=== PATIENT | male | born 1955 | race Caucasian/White ===

== ENCOUNTER 2016-09-28 13:26 | Inpatient (IN) | payer MEDICARE, OTHER ==
[~2016-09-28] VITALS: Ht 177.8 cm; Wt 64.9 kg
[~2016-09-28 13:26] MED LIST: ACHD5005 PO; CEFU250T11 PO; CPR500T PO; CYCL-97 PO; CYCL10TA9 PO; IBUP1TAB PO; NAPR-243 PO; NAPR220C11 PO; OXYC-465 PO; PRD20T PO; TRM50T PO; VARE1TAB17 PO; [UNRECOGNIZED DRUG - OTHER]; [UNRECOGNIZED DRUG - REMARK]
--- NOTE | 2016-09-28 14:37 | ED General ---
General Chief Complaint: Hip/Pelvic Problems Stated Complaint: HIP PAIN/CONFUSION Nursing Triage Note: AMBULATED TO ROOM 07 WITH COMPLAINTS OF RIGHT HIP PAIN ET NECK PAIN STARTING YESTERDAY. SISTER STATES HE IS NOT ACTING HIMSELF AND SEEMS CONFUSED AT TIMES STARTING THIS AM SHE NOTICED. Nursing Sepsis Screen: No Definite Risk Source of Information: Patient, Family (sister) Exam Limitations: Other (clinical condition) History of Present Illness Time Seen by Provider: 14:37 Initial Comments 61-year-old male patient presents to the emergency department with complaints of right hip pain and neck pain beginning last night. Sister reports patient contacted her at 0600 this a.m. as well as contacted other family members and was confused. Patient reportedly told the family that people were "bleeding out and dying" at his house. Sister states she did go check on him this afternoon and found patient to be confused, delusional, and hallucinating. Denies any previous h/o similar complaints. Denies any known injury or recent falls. Timing/Duration: 12-24 Hours, Changing Over Time, Getting Worse Modifying Factors: worse with Other (denies modifying factors) Allergies and Home Medications Allergies Coded Allergies: Penicillins (Unverified Allergy, Mild, RASH, 05/30/13) FROM UNCODED ALLERGIES. fish derived (Unverified Allergy, Mild, RASH, 05/30/13) FROM UNCODED ALLERGIES. TUNA, MACKERAL, SALMON. adhesive (Verified Allergy, Unknown, HIVES, 09/28/16) Tape chicken derived (Unverified Allergy, Unknown, RASH, 09/28/16) FROM UNCODED ALLERGIES. egg (Unverified Allergy, Unknown, RASH, 09/28/16) pork derived (porcine) (Unverified Allergy, Unknown, 09/28/16) FROM UNCODED ALLERGIES. RX IS DIARRHEA. Home Medications Levofloxacin 500 Mg Tablet #7 500 MG PO DAILY Prescribed by: MARLENY COOPER on 09/29/16 1115 Constitutional: No chills, No diaphoresis, No dizziness, feverNo malaise, No weakness EENTM: no symptoms reported Respiratory: No cough, No short of breath Cardiovascular: No chest pain, No edema, No palpitations, No syncope Gastrointestinal: No abdominal pain, No constipation, No diarrhea, loss of appetiteNo nausea, No vomiting Genitourinary: No decreased output, No dysuria, No frequency, No hematuria, No pain Musculoskeletal: see HPINo back pain, joint pain neck pain Skin: No change in color, No lesions, No lumps, No rash Psychiatric/Neurological: See HPIDenies Headache, Denies Numbness, Denies Paresthesia, Denies Seizure, Denies Tingling, Denies Weakness All Other Systems Reviewed Negative Unless Noted: Yes (Negative excepted noted.) Past Csxnsnn-Fovwzd-Rjsuyl Hx Patient Social History Alcohol Use: Occasionally Uses Recreational Drug Use: No Smoking Status: Current Everyday Smoker Recent Foreign Travel: No Contact w/Someone Who Travel: No Recent Infectious Disease Expo: No Recent Hopitalizations: No Seasonal Allergies Seasonal Allergies: Yes Surgeries HX Surgeries: Yes (SINUS SURGERY, BACK FUSION 5-6-7) Respiratory Hx Respiratory Disorders: Yes Respiratory Disorders: COPD Cardiovascular Hx Cardiac Disorders: No Neurological Hx Neurological Disorders: No Reproductive System Hx Reproductive Disorders: No Genitourinary Hx Genitourinary Disorders: No Gastrointestinal Hx Gastrointestinal Disorders: No Musculoskeletal Hx Musculoskeletal Disorders: Yes (CERVICAL STENOSIS) Musculoskeletal Disorders: Chronic Back Pain Endocrine Hx Endocrine Disorders: No HEENT HX ENT Disorders: No (ALLERGIES) Cancer Hx Cancer: No Psychosocial Hx Psychiatric Problems: No Integumentary HX Skin/Integumentary Disorder: No Blood Transfusions Hx Blood Disorders: No Reviewed Nursing Assessment Reviewed/Agree w Nursing PMH: Yes Family Medical History Significant Family History: No Pertinent Family Hx Physical Exam Vital Signs Vital Sign - Last 12Hours 09/28/16 14:13 Temp 99.7 Pulse 129 Resp 18 B/P 160/104 Pulse Ox 94 O2 Delivery Room Air Capillary Refill : Less Than 3 Seconds General Appearance: No Apparent Distress Chronically ill HEENT: PERRL/EOMI TMs Normal Normal ENT Inspection Pharynx Normal Neck: Full Range of Motion Normal Inspection Supple Tender LateralNo Tender Midline, No Other (no nuchal rigidity.) Respiratory: Lungs Clear Normal Breath Sounds No Accessory Muscle Use No Respiratory Distress Cardiovascular: No Edema No Murmur Normal Peripheral Pulses Tachycardia Gastrointestinal: Normal Bowel Sounds No Organomegaly Non Tender SoftNo Distended Back: Normal Inspection No CVA Tenderness Extremity: Normal Capillary Refill Normal Inspection Non Tender No Calf Tenderness No Pedal Edema Neurologic/Psychiatric: Alert No Motor/Sensory Deficits (Patient is slow to follow commands, but is able to after being redirected 2-3 times.) adhesive sprayer II-XII Norm as Tested (Patient is slow to follow commands, but is able to after being redirected 2-3 times.) Depressed Affect Other (patient has alternating episodes of confusion and being oriented. Patient asks this examiner "are they going to release your sister's body to you?" I explained to the patient that I do not have a sister. ) Skin: Normal Color Warm/Dry Progress/Results/Core Measures Results/Orders Lab Results Laboratory Tests Test 09/28/16 14:40 09/28/16 15:00 09/28/16 16:31 09/28/16 19:32 Range/Units Acetaminophen Level < 10 L 10-30 UG/ML Activated Partial Thromboplast Time 28 24-35 SEC Alanine Aminotransferase (ALT/SGPT) 9 0-55 U/L Albumin 4.5 3.2-4.5 G/DL Alkaline Phosphatase 124 40-136 U/L Anion Gap 17 H 5-14 MMOL/L Aspartate Amino Transf (AST/SGOT) 18 5-34 U/L BUN/Creatinine Ratio 15 Basophils # (Auto) 0.0 0.0-0.1 10^3/uL Basophils (%) (Auto) 0 0-10 % Blood Morphology Comment NORMAL Blood Urea Nitrogen 13 7-18 MG/DL Calcium Level 9.1 8.5-10.1 MG/DL Carbon Dioxide Level 21 21-32 MMOL/L Chloride Level 99 98-107 MMOL/L Creatinine 0.87 0.60-1.30 MG/DL Eosinophils # (Auto) 0.1 0.0-0.3 10^3/uL Eosinophils (%) (Auto) 0 0-10 % Estimat Glomerular Filtration Rate > 60 Glucose Level 100 70-105 MG/DL Hematocrit 51 40-54 % Hemoglobin 17.7 13.3-17.7 G/DL Hypersegmented Neutrophils MODERATE INR Comment 1.0 0.8-1.4 Lymphocytes # (Auto) 1.2 1.0-4.0 X 10^3 Lymphocytes % (Manual) 4 % Lymphocytes (%) (Auto) 7 L 12-44 % Mean Corpuscular Hemoglobin 30 25-34 PG Mean Corpuscular Hemoglobin Concent 35 32-36 G/DL Mean Corpuscular Volume 85 80-99 FL Mean Platelet Volume 11.4 H 7.4-10.4 FL Monocytes # (Auto) 1.2 H 0.0-1.0 X 10^3 Monocytes % (Manual) 4 % Monocytes (%) (Auto) 7 0-12 % Neutrophils # (Auto) 14.1 H 1.8-7.8 X 10^3 Neutrophils % (Manual) 90 % Neutrophils (%) (Auto) 85 H 42-75 % Platelet Count 244 130-400 10^3/uL Potassium Level 3.8 3.6-5.0 MMOL/L Prothrombin Time 12.9 12.2-14.7 SEC Reactive Lymphocytes 2 % Red Blood Count 5.98 H 4.35-5.85 10^6/uL Red Cell Distribution Width 14.9 H 10.0-14.5 % Salicylates Level < 5.0 L 5.0-20.0 MG/DL Serum Alcohol < 10 <10 MG/DL Sodium Level 137 135-145 MMOL/L TSH [place] Testing 2.26 0.35-4.94 UIU/ML Total Bilirubin 0.8 0.1-1.0 MG/DL Total Protein 7.1 6.4-8.2 G/DL White Blood Count 16.6 H 4.3-11.0 10^3/uL Lactic Acid Level 1.5 0.5-2.0 MMOL/L Ur Tricyclic Antidepressants Screen NEGATIVE NEGATIVE Urine Amphetamines Screen NEGATIVE NEGATIVE Urine Bacteria NEGATIVE /HPF Urine Barbiturates Screen NEGATIVE NEGATIVE Urine Benzodiazepines Screen NEGATIVE NEGATIVE Urine Bilirubin NEGATIVE NEGATIVE Urine Cannabinoids Screen NEGATIVE NEGATIVE Urine Casts NONE /LPF Urine Clarity CLEAR Urine Cocaine Screen NEGATIVE NEGATIVE Urine Color YELLOW Urine Crystals NONE /LPF Urine Culture Indicated NO Urine Glucose (UA) NEGATIVE NEGATIVE Urine Ketones 3+ H NEGATIVE Urine Leukocyte Esterase 1+ H NEGATIVE Urine Methadone Screen NEGATIVE NEGATIVE Urine Methamphetamines Screen NEGATIVE NEGATIVE Urine Mucus NEGATIVE /LPF Urine Nitrite NEGATIVE NEGATIVE Urine Opiates Screen NEGATIVE NEGATIVE Urine Oxycodone Screen NEGATIVE NEGATIVE Urine Phencyclidine Screen NEGATIVE NEGATIVE Urine Propoxyphene Screen NEGATIVE NEGATIVE Urine Protein NEGATIVE NEGATIVE Urine RBC NONE /HPF Urine RBC (Auto) NEGATIVE NEGATIVE Urine Specific [place] 1.010 L 1.016-1.022 Urine Squamous Epithelial Cells RARE /HPF Urine Urobilinogen NORMAL NORMAL MG/DL Urine WBC 0-2 /HPF Urine pH 6 5-9 CSF Appearance CLEAR CSF Color COLORLESS CSF Glucose 63 50-80 MG/DL CSF Lymphocytes % CSF Mononuclear WBCs % CSF Polynuclear WBCs % CSF RBC 0 0-0 CELLS CSF Total Protein 24 15-40 MG/DL CSF Tube Number 4 CSF WBC 0 0-5 CELLS Test 09/29/16 04:55 Range/Units Alanine Aminotransferase (ALT/SGPT) 7 0-55 U/L Albumin 3.2 3.2-4.5 G/DL Alkaline Phosphatase 85 40-136 U/L Anion Gap 9 5-14 MMOL/L Aspartate Amino Transf (AST/SGOT) 14 5-34 U/L BUN/Creatinine Ratio 12 Basophils # (Auto) 0.0 0.0-0.1 10^3/uL Basophils (%) (Auto) 0 0-10 % Blood Urea Nitrogen 9 7-18 MG/DL Calcium Level 7.8 L 8.5-10.1 MG/DL Carbon Dioxide Level 23 21-32 MMOL/L Chloride Level 106 98-107 MMOL/L Creatinine 0.75 0.60-1.30 MG/DL Eosinophils # (Auto) 0.2 0.0-0.3 10^3/uL Eosinophils (%) (Auto) 2 0-10 % Estimat Glomerular Filtration Rate > 60 Glucose Level 96 70-105 MG/DL Hematocrit 44 40-54 % Hemoglobin 14.7 13.3-17.7 G/DL Lymphocytes # (Auto) 1.4 1.0-4.0 X 10^3 Lymphocytes (%) (Auto) 15 12-44 % Mean Corpuscular Hemoglobin 29 25-34 PG Mean Corpuscular Hemoglobin Concent 34 32-36 G/DL Mean Corpuscular Volume 87 80-99 FL Mean Platelet Volume 11.6 H 7.4-10.4 FL Monocytes # (Auto) 0.9 0.0-1.0 X 10^3 Monocytes (%) (Auto) 11 0-12 % Neutrophils # (Auto) 6.4 1.8-7.8 X 10^3 Neutrophils (%) (Auto) 72 42-75 % Platelet Count 184 130-400 10^3/uL Potassium Level 3.7 3.6-5.0 MMOL/L Red Blood Count 5.01 4.35-5.85 10^6/uL Red Cell Distribution Width 14.8 H 10.0-14.5 % Sodium Level 138 135-145 MMOL/L Total Bilirubin 0.5 0.1-1.0 MG/DL Total Protein 5.2 L 6.4-8.2 G/DL White Blood Count 8.9 4.3-11.0 10^3/uL Micro Results Microbiology 09/28/16 Blood Culture - Preliminary, Resulted No growth 09/28/16 Blood Culture - Preliminary, Resulted No growth 09/28/16 Gram Stain - Final, Resulted 09/28/16 CSF Culture - Preliminary, Resulted No growth My Orders Orders-LIZABETH HUBBARD Acetaminophen (09/28/16 14:32) Alcohol (09/28/16 14:32) Cbc With Automated Diff (09/28/16 14:32) Comprehensive Metabolic Panel (09/28/16 14:32) Drug Screen Stat (Urine) (09/28/16 14:32) Salicylate (09/28/16 14:32) Thyroid Analyzer (09/28/16 14:32) Ua Culture If Indicated (09/28/16 14:32) Saline Lock/Iv-Start (09/28/16 14:32) Ekg Tracing (09/28/16 14:32) Chest 1 View, Ap/Pa Only (09/28/16 14:32) Pelvis (09/28/16 14:36) Hip, Right, 2 Views (09/28/16 14:36) Manual Differential (09/28/16 14:40) Ns Iv 1000 Ml (Sodium Chloride 0.9%) (09/28/16 14:57) Acetaminophen Tablet (Tylenol Tablet) (09/28/16 14:57) Lactic Acid Analyzer (09/28/16 14:57) Blood Culture (09/28/16 14:57) Ct Head/Cervical Spine Wo (09/28/16 15:03) Ct Angio Head W (09/28/16 16:50) Iohexol Injection (Omnipaque 350 Mg/Ml 1 (09/28/16 17:15) Ns (Ivpb) (Sodium Chloride 0.9% Ivpb Bag (09/28/16 17:15) Ns Iv 1000 Ml (Sodium Chloride 0.9%) (09/28/16 18:30) Ceftriaxone Injection (Rocephin Injectio (09/28/16 18:30) Ketorolac Injection (Toradol Injection) (09/28/16 18:35) Spinal Punctue Lumbar Diagnos (09/28/16 18:47) Csf Culture (09/28/16 19:40) Csf Cell Count (09/28/16 19:40) Csf Glucose (09/28/16 19:40) Csf Total Protein (09/28/16 19:40) Ceftriaxone Injection (Rocephin Injectio (09/28/16 19:45) Medications Given in ED Vital Signs/I&O Blood Pressure Mean: 122 Diagnostic Imaging Diagonstic Imaging: CT Plain Films/CT/US/NM/MRI: c-spine, head Comments FINDINGS: There is mild prominence of ventricles and sulci. No hydrocephalus. No midline shift. No intracranial mass, hemorrhage or extra-axial fluid collection. There is no CT evidence of an acute CVA. There is complete opacification of the frontal sinuses. There is opacification of several ethmoid air cells as well as the sphenoid sinus. There is some nodular mucosal thickening in maxillary sinuses bilaterally, left greater than right. There is straightening of normal cervical lordosis. There are postsurgical changes of a cervical fusion from C4-C7 with plate and screws. There is a lucency between the C4 and C5 vertebral body suggesting incomplete fusion. Remainder of the fusion appears satisfactory. There is no fracture or traumatic subluxation. The odontoid is intact. The lateral masses are well aligned. Prevertebral soft tissues are within normal limits. IMPRESSION: 1. No acute intracranial abnormality. There does appear to be mild age-appropriate atrophy. 2. Moderately severe diffuse sinus disease as described. This likely reflects polyposis. Recommend clinical correlation. 3. Postsurgical change of a C4-C7 fusion. There is a persistent lucency between the C4 and C5 vertebral bodies suggesting pseudarthrosis and/or incomplete fusion. Recommend clinical correlation. 4. No acute fracture or traumatic subluxation. Dictated on workstation # [id number] Reviewed: Reviewed by Me (radiology report reviewed by me) Diagonstic Imaging: Xray Plain Films/CT/US/NM/MRI: chest Comments FINDINGS: The heart size is normal. Mediastinum is unremarkable. No pleural effusion, pneumothorax or pneumonia. IMPRESSION: No acute cardiopulmonary abnormality. Dictated by: Dictated on workstation # [id number] Reviewed: Reviewed by Me (radiology report reviewed by me) Diagonstic Imaging: Xray Plain Films/CT/US/NM/MRI: pelvis Comments FINDINGS: AP pelvis shows SI joints and pubic symphysis in good alignment. There is mild sclerosis along the SI joints. Femoral heads are in normal articulation bilaterally with mild degenerative changes along the femoroacetabular joint bilaterally. There are no fractures. Femoral heads show smooth articulating surfaces. IMPRESSION: Scattered degenerative changes with no acute abnormality. Dictated by: Dictated on workstation # [id number] Reviewed: Reviewed by Me (radiology report reviewed by me) Diagonstic Imaging: Xray Plain Films/CT/US/NM/MRI: hip Comments FINDINGS: There are degenerative changes in the right hip. No fracture or dislocation. The soft tissues are unremarkable. IMPRESSION: Degenerative changes in the right hip, otherwise, unremarkable. Dictated by: Dictated on workstation # [id number] Reviewed: Reviewed by Me (radiology report reviewed by me) Diagonstic Imaging: CT Plain Films/CT/US/NM/MRI: head (angio head) Comments FINDINGS: Included portions of the distal internal carotid arteries have normal appearance, bilaterally. There is some scattered calcified atherosclerosis, distally. Otherwise, siphons have a normal appearance. There is also normal appearance of the bilateral anterior and middle cerebral arteries. Anterior communicating artery is not well visualized on this exam, but there is no evidence of aneurysm, vascular malformation, nor intraluminal thrombosis within the anterior circulation. Within the posterior circulation, the vertebral arteries appear to be codominant. Included portions of the distal vertebral arteries are patent. There is normal appearance to the basilar artery. The bilateral posterior cerebral arteries are well opacified, bilaterally. Posterior communicating arteries are not well visualized on either side. There is no evidence of aneurysm, vascular malformation, nor intraluminal thrombosis within the posterior circulation. Postcontrast CT of the head was also performed and is reviewed. No abnormal areas of postcontrast enhancement are identified. There is no loss of murphy-white matter junction differentiation to suggest acute territorial infarct. There is no mass effect or midline shift. No extra-axial masses or fluid collections are seen. There is no evidence of intra- or extra-axial intracranial hemorrhage. Ventricles and cortical sulci are age- appropriate. Evaluation of the paranasal sinuses again demonstrates severe diffuse nodular mucosal thickening of the nasal passageways. There is soft tissue lesion filling the posterior left nasal passageway. There is also complete opacification of the left sphenoid sinus and small air-fluid level on the right. There is scattered near complete opacification of the bilateral ethmoid air cells. There is also complete opacification of the left frontal sinus with apparent erosion of the anterior wall of frontal sinus. Otherwise, calvarium is intact. Mastoid air cells are unremarkable. IMPRESSION: 1. No evidence of intraluminal thrombosis, aneurysm, nor vascular malformation. 2. No acute intracranial abnormality. No CT evidence of acute infarct, mass, or hemorrhage. 3. Advanced paranasal sinus disease as described above. Filling defect within the posterior left nasal passageway is noted and is suggestive of possible prolapsed choanal polyp. Additionally, there is erosion through the anterior wall of the left frontal sinus. Dictated on workstation # [id number] Reviewed: Reviewed by Me (radiology report reviewed by me) Departure Communication Time/Spoke to Admitting Phy: 20:[address] Aguilera accepts patient to his internal medicine service for IV antibiotics, IVF, and further evaluation. Progress Notes 1633 Crisis line contacted. will await return call. 1640 Patient case discussed with Gus Ferrell from [facility]. Per Gus Ferrell, it would be abnormal for patient to develop psychosis/schizophrenia at the age of 61[address] scan of the head with IV contrast to further evaluate/rule out stroke/ischemic changes. Patient and family notified of these recommendations. Both voice understanding. 1835 patient case discussed with Dr. Cleveland who recommends consulting anesthesia for lumbar puncture to rule out meningitis. Plan for lumbar puncture discussed with the patient and family. Both voice understanding. Patient denies any new needs or complaints. 184 Pardeep Orozco CRNA consulted for LP. 2044 all laboratory findings, diagnostic study findings, and recommendations for admission discussed with the patient and family as patient continues to have episodes of hallucinations and delusions. Both voice understanding and agree with the treatment plan. Dr. Cleveland notified of plan for admission. He agrees with the plan of care. Impression Impression: Primary Impression: Altered level of consciousness Additional Impressions: Acute psychosis Sinusitis Qualified Code: J32.9 - Chronic sinusitis, unspecified Headache Qualified Code: R51 - Headache Leukocytosis Qualified Code: D72.829 - Elevated white blood cell count, unspecified Disposition: ADMITTED INPATIENT Condition: Stable Decision to Admit Reason: Admit from ER (General) Decision to Admit/Date: Sep 28, 2016 Time/Decision to Admit Time: 20:40 Departure-Patient Inst. Referrals: SURJIT FUNG MD (PCP/Family) Primary Care Physician Scripts Levofloxacin (Levaquin)500 Mg [id number] Mg PO DAILY #7 TAB Prov:MARLENY COOPER MD 09/29/16 LIZABETH HUBBARD Sep 28, 2016 14:37
[2016-09-28 14:46] LABS: BASOPHILS % (AUTO) 0 % (0-10); EOSINOPHILS # (AUTO) 0.1 10^3/uL (0.0-0.3); EOSINOPHILS % (AUTO) 0 % (0-10); LYMPHOCYTES # (AUTO) 1.2 X 10^3 (1.0-4.0); LYMPHOCYTES % (AUTO) 7 % (12-44); MEAN CORPUSCULAR HEMOGLOBIN 30 PG (25-34); MEAN CORPUSCULAR HGB CONC 35 G/DL (32-36); MEAN CORPUSCULAR VOLUME 85 FL (80-99); MEAN PLATELET VOLUME 11.4 FL (7.4-10.4); MONOCYTES # (AUTO) 1.2 X 10^3 (0.0-1.0); MONOCYTES % (AUTO) 7 % (0-12); NEUTROPHILS # (AUTO) 14.1 X 10^3 (1.8-7.8); NEUTROPHILS % (AUTO) 85 % (42-75); PLATELET COUNT 244 10^3/uL (130-400); RED BLOOD COUNT 5.98 10^6/uL (4.35-5.85); RED CELL DISTRIBUTION WIDTH 14.9 % (10.0-14.5); WHITE BLOOD COUNT 16.6 10^3/uL (4.3-11.0)
[2016-09-28] MEDS ORDERED: NS IV 1000 ML 1,000 ML IV ONE ×2 (14:57→18:30)
[2016-09-28] MEDS ORDERED: ACETAMINOPHEN 500 MG TAB (TYLENOL) PO STA (14:57)
[2016-09-28 15:07] LABS: ALANINE AMINOTRANSFERASE 9 U/L (0-55); ALBUMIN 4.5 G/DL (3.2-4.5); ANION GAP 17 MMOL/L (5-14); ASPARTATE AMINO TRANSFERASE 18 U/L (5-34); BILIRUBIN,TOTAL 0.8 MG/DL (0.1-1.0); BLOOD UREA NITROGEN 13 MG/DL (7-18); BUN/CREATININE RATIO 15; CALCIUM 9.1 MG/DL (8.5-10.1); CARBON DIOXIDE 21 MMOL/L (21-32); CHLORIDE 99 MMOL/L (98-107); CREATININE SERUM 0.87 MG/DL (0.60-1.30); GFR ESTIMATED > 60; GLUCOSE 100 MG/DL (70-105); POTASSIUM 3.8 MMOL/L (3.6-5.0); SALICYLATE < 5.0 MG/DL (5.0-20.0); SODIUM 137 MMOL/L (135-145); TOTAL PROTEIN 7.1 G/DL (6.4-8.2)
[2016-09-28 15:09] LABS: ACETAMINOPHEN < 10 UG/ML (10-30); ALCOHOL < 10 MG/DL (<10)
[2016-09-28 15:20] LABS: LYMPHOCYTES % (MANUAL) 4 %; NEUTROPHILS % (MANUAL) 90 %; REACTIVE LYMPHOCYTES 2 %
--- NOTE | 2016-09-28 15:30 | Diagnostic Imaging Report ---
INDICATION: Patient is confused. No history is given. FINDINGS: AP pelvis shows SI joints and pubic symphysis in good alignment. There is mild sclerosis along the SI joints. Femoral heads are in normal articulation bilaterally with mild degenerative changes along the femoroacetabular joint bilaterally. There are no fractures. Femoral heads show smooth articulating surfaces. IMPRESSION: Scattered degenerative changes with no acute abnormality. Dictated by: Dictated on workstation # [id number]
--- NOTE | 2016-09-28 15:33 | Diagnostic Imaging Report ---
INDICATION: Confusion. Comparison made to prior examination 04/03/2013. FINDINGS: The heart size is normal. Mediastinum is unremarkable. No pleural effusion, pneumothorax or pneumonia. IMPRESSION: No acute cardiopulmonary abnormality. Dictated by: Dictated on workstation # [id number]
--- NOTE | 2016-09-28 15:34 | Diagnostic Imaging Report ---
INDICATION: Hip pain. Two views were obtained. FINDINGS: There are degenerative changes in the right hip. No fracture or dislocation. The soft tissues are unremarkable. IMPRESSION: Degenerative changes in the right hip, otherwise, unremarkable. Dictated by: Dictated on workstation # [id number]
--- NOTE | 2016-09-28 15:45 | Diagnostic Imaging Report ---
PROCEDURE: CT head and CT cervical spine without contrast. TECHNIQUE: Multiple contiguous axial images were obtained through the brain and cervical spine without the use of intravenous contrast. Sagittal and coronal reformations through the cervical spine were then performed. INDICATION: Head and neck pain with weakness. FINDINGS: There is mild prominence of ventricles and sulci. No hydrocephalus. No midline shift. No intracranial mass, hemorrhage or extra-axial fluid collection. There is no CT evidence of an acute CVA. There is complete opacification of the frontal sinuses. There is opacification of several ethmoid air cells as well as the sphenoid sinus. There is some nodular mucosal thickening in maxillary sinuses bilaterally, left greater than right. There is straightening of normal cervical lordosis. There are postsurgical changes of a cervical fusion from C4-C7 with plate and screws. There is a lucency between the C4 and C5 vertebral body suggesting incomplete fusion. Remainder of the fusion appears satisfactory. There is no fracture or traumatic subluxation. The odontoid is intact. The lateral masses are well aligned. Prevertebral soft tissues are within normal limits. IMPRESSION: 1. No acute intracranial abnormality. There does appear to be mild age-appropriate atrophy. 2. Moderately severe diffuse sinus disease as described. This likely reflects polyposis. Recommend clinical correlation. 3. Postsurgical change of a C4-C7 fusion. There is a persistent lucency between the C4 and C5 vertebral bodies suggesting pseudarthrosis and/or incomplete fusion. Recommend clinical correlation. 4. No acute fracture or traumatic subluxation. Dictated by: Dictated on workstation # [id number]
[2016-09-28 16:43] LABS: BILIRUBIN,URINE NEGATIVE (NEGATIVE); KETONES,URINE 3+ (NEGATIVE); LEUKOCYTE ESTERASE ,URINE 1+ (NEGATIVE); NITRITE,URINE NEGATIVE (NEGATIVE); PH,URINE 6 (5-9); PROTEIN,URINE NEGATIVE (NEGATIVE); UROBILINOGEN,URINE NORMAL (NORMAL)
[2016-09-28 16:57] LABS: SQUAMOUS EPITHELIAL CELL,UR RARE /HPF; WBC,URINE 0-2 /HPF
[2016-09-28] MEDS ORDERED: IOHEXOL 350 MG/ML 100 ML (OMNIPAQUE 350) VIAL IV ONE (17:15)
[2016-09-28] MEDS ORDERED: NS 100 ML (IVPB) BAG IV ONE (17:15)
--- NOTE | 2016-09-28 17:47 | Diagnostic Imaging Report ---
INDICATION: Recent onset right-sided weakness. COMPARISON: Noncontrast CT head from earlier the same day TECHNIQUE: Postcontrast CTA of the head was performed. Contrast bolus was timed for optimal opacification of the arterial structures. Multiplanar and 3-D reformats were also performed and reviewed. FINDINGS: Included portions of the distal internal carotid arteries have normal appearance, bilaterally. There is some scattered calcified atherosclerosis, distally. Otherwise, siphons have a normal appearance. There is also normal appearance of the bilateral anterior and middle cerebral arteries. Anterior communicating artery is not well visualized on this exam, but there is no evidence of aneurysm, vascular malformation, nor intraluminal thrombosis within the anterior circulation. Within the posterior circulation, the vertebral arteries appear to be codominant. Included portions of the distal vertebral arteries are patent. There is normal appearance to the basilar artery. The bilateral posterior cerebral arteries are well opacified, bilaterally. Posterior communicating arteries are not well visualized on either side. There is no evidence of aneurysm, vascular malformation, nor intraluminal thrombosis within the posterior circulation. Postcontrast CT of the head was also performed and is reviewed. No abnormal areas of postcontrast enhancement are identified. There is no loss of murphy-white matter junction differentiation to suggest acute territorial infarct. There is no mass effect or midline shift. No extra-axial masses or fluid collections are seen. There is no evidence of intra-or extra-axial intracranial hemorrhage. Ventricles and cortical sulci are age-appropriate. Evaluation of the paranasal sinuses again demonstrates severe diffuse nodular mucosal thickening of the nasal passageways. There is soft tissue lesion filling the posterior left nasal passageway. There is also complete opacification of the left sphenoid sinus and small air-fluid level on the right. There is scattered near complete opacification of the bilateral ethmoid air cells. There is also complete opacification of the left frontal sinus with apparent erosion of the anterior wall of frontal sinus. Otherwise, calvarium is intact. Mastoid air cells are unremarkable. IMPRESSION: 1. No evidence of intraluminal thrombosis, aneurysm, nor vascular malformation. 2. No acute intracranial abnormality. No CT evidence of acute infarct, mass, or hemorrhage. 3. Advanced paranasal sinus disease as described above. Filling defect within the posterior left nasal passageway is noted and is suggestive of possible prolapsed choanal polyp. Additionally, there is erosion through the anterior wall of the left frontal sinus. Dictated by: Dictated on workstation # [id number]
[2016-09-28] MEDS ORDERED: cefTRIAXone INJECTION 1,000 MG in NS (IVPB) 50 ML IV ONE (18:30)
[2016-09-28] MEDS ORDERED: KETOROLAC 30 MG/ML VIAL IVP STA (18:35)
[2016-09-28 19:23] LABS: PROTHROMBIN TIME PATIENT 12.9 SEC (12.2-14.7)
--- NOTE | 2016-09-28 19:43 | Anesthesia-Procedure Note ---
Procedure Start/Stop Time Date of Procedure: Sep 28, 2016 Start Time: 19:10 Referring Physician: Atif Preprocedural Diagnosis: altered mental status Stop Time: 19:35 Postprocedural Diagnosis: same Procedures/Interventions Discussed Risk,Benefits: Yes Patient Consents: Yes Position: Lying, L3-4, Right Sterile Technique: Yes Opening Pressure: 15.4 Fluid Color: clear Spinal Needle Used: 22g Neely 3 1/2 inch Procedure Notes redirect x 2 tolerated well. 2cc CSF in all 4 tubes. To lab by ED MARGOT. SUZAN NARANJO CRNA Sep 28, 2016 19:42
[2016-09-28] MEDS ORDERED: cefTRIAXone INJECTION 2,000 MG in NS (IVPB) 50 ML IV ONE (19:45)
[2016-09-28 19:58] LABS: APPEARANCE,CSF CLEAR; COLOR,CSF COLORLESS; WHITE BLOOD CELL,CSF 0 CELLS (0-5)
[2016-09-28 20:09] LABS: CSF GLUCOSE 63 MG/DL (50-80); CSF TOTAL PROTEIN 24 MG/DL (15-40)
[2016-09-28] MEDS ORDERED: NS W/KCL 20 MEQ/L 1,000 ML IV ONE (23:37)
[2016-09-29] VITALS: BP 121/74
[2016-09-29] MEDS ORDERED: cefTRIAXone 2 GM/NS 50 ML IVPB IV SCH ×2 (00:30)
[2016-09-29] MEDS ORDERED: IBUPROFEN 800 MG (MOTRIN) TAB PO PRN (00:30)
[2016-09-29] MEDS ORDERED: ACETAMINOPHEN 500 MG TAB (TYLENOL) PO PRN (00:30)
[2016-09-29] MEDS ORDERED: ONDANSETRON 4 MG/2 ML (SDV) Z0FRAN IV PRN (00:30)
[2016-09-29] MEDS: NS W/KCL 20 MEQ/L 1,000 ML IV SCH ×2 (00:39→06:42)
[2016-09-29] MEDS ORDERED: CATHETER FLUSH 10 ML SYR IV PRN (00:45)
[2016-09-29 04:00] VITALS: BP 107/65
[2016-09-29 05:21] LABS: BASOPHILS % (AUTO) 0 % (0-10); EOSINOPHILS # (AUTO) 0.2 10^3/uL (0.0-0.3); EOSINOPHILS % (AUTO) 2 % (0-10); LYMPHOCYTES # (AUTO) 1.4 X 10^3 (1.0-4.0); LYMPHOCYTES % (AUTO) 15 % (12-44); MEAN CORPUSCULAR HEMOGLOBIN 29 PG (25-34); MEAN CORPUSCULAR HGB CONC 34 G/DL (32-36); MEAN CORPUSCULAR VOLUME 87 FL (80-99); MEAN PLATELET VOLUME 11.6 FL (7.4-10.4); MONOCYTES # (AUTO) 0.9 X 10^3 (0.0-1.0); MONOCYTES % (AUTO) 11 % (0-12); NEUTROPHILS # (AUTO) 6.4 X 10^3 (1.8-7.8); NEUTROPHILS % (AUTO) 72 % (42-75); PLATELET COUNT 184 10^3/uL (130-400); RED BLOOD COUNT 5.01 10^6/uL (4.35-5.85); RED CELL DISTRIBUTION WIDTH 14.8 % (10.0-14.5); WHITE BLOOD COUNT 8.9 10^3/uL (4.3-11.0)
[2016-09-29 05:46] LABS: ALANINE AMINOTRANSFERASE 7 U/L (0-55); ALBUMIN 3.2 G/DL (3.2-4.5); ANION GAP 9 MMOL/L (5-14); ASPARTATE AMINO TRANSFERASE 14 U/L (5-34); BILIRUBIN,TOTAL 0.5 MG/DL (0.1-1.0); BLOOD UREA NITROGEN 9 MG/DL (7-18); BUN/CREATININE RATIO 12; CALCIUM 7.8 MG/DL (8.5-10.1); CARBON DIOXIDE 23 MMOL/L (21-32); CHLORIDE 106 MMOL/L (98-107); CREATININE SERUM 0.75 MG/DL (0.60-1.30); GFR ESTIMATED > 60; GLUCOSE 96 MG/DL (70-105); POTASSIUM 3.7 MMOL/L (3.6-5.0); SODIUM 138 MMOL/L (135-145); TOTAL PROTEIN 5.2 G/DL (6.4-8.2)
[2016-09-29] MEDS ORDERED: CATHETER FLUSH 10 ML SYR IV SCH (06:00)
[2016-09-29 08:00] VITALS: BP 124/76
[2016-09-29] MEDS ORDERED: PATCH REMOVAL TP SCH (09:00)
[2016-09-29] MEDS ORDERED: NICOTINE 21 MG (NICODERM) PATCH TD SCH (09:00)
[2016-09-29] MEDS ORDERED: LEVO500T2 PO (11:15)
[2016-09-29 12:15] VITALS: BP 124/76
--- NOTE | 2016-09-29 15:56 | Short Stay Summary-Hospitalist ---
HPI History of Present Illness: HPI/Chief Complaint Mr. Hightower this 61-year-old white male who presented to the emergency room with reported altered mental status. He reported oral hallucinations family members who subsequently brought into the emergency room. There was no reported illicit drug use. He does report a narcotics prescription that he uses for chronic neck and hip pain. Urine drug screen tested positive for opiates and was negative for everything else. He was complaining about neck pain. He underwent spinal tap which was unremarkable and was admitted for observation. He states that he had been under stress denies any other changes in his environment. He reports similar nonthreatening auditory hallucinations several years ago denying visual hallucinations. he denies problems with memory impairment. One of our nurses reports knowing him as a distant relative and states that he is always been a simple person and this morning appears to be at baseline mental status. He reports chronic problems with sinus congestion denies current headache reports chronic neck pain and right hip pain and chronic problems with low back pain. He has had recent MRI evaluation of his neck at all with her for states and has had previous cervical fusion with anterior approach several years ago C5 through C7. He denies chills fever or night sweats or recent change in weight. Date Seen 09/29/16 Attending Physician Steven Amos MD PCP Steven Amos MD Referring Physician Date of Admission Sep 28, 2016 at 20:45 Home Medications & Allergies Home Medications Reviewed patient Home Medication Reconciliation Form Allergies Coded Allergies: Penicillins (Unverified Allergy, Mild, RASH, 05/30/13) FROM UNCODED ALLERGIES. fish derived (Unverified Allergy, Mild, RASH, 05/30/13) FROM UNCODED ALLERGIES. TUNA, MACKERAL, SALMON. adhesive (Verified Allergy, Unknown, HIVES, 09/28/16) Tape chicken derived (Unverified Allergy, Unknown, RASH, 09/28/16) FROM UNCODED ALLERGIES. egg (Unverified Allergy, Unknown, RASH, 09/28/16) pork derived (porcine) (Unverified Allergy, Unknown, 09/28/16) FROM UNCODED ALLERGIES. RX IS DIARRHEA. Past Hefoidb-Wugcej-Cnddcr Hx Patient Social History Alcohol Use: Denies Use Recreational Drug Use: No Smoking Status: Current Everyday Smoker Type Used: Cigarettes Physical Abuse Screen: No Sexual Abuse: No Recent Foreign Travel: No Contact w/other who traveled: No Recent Hopitalizations: No Recent Infectious Disease Expo: No Seasonal Allergies Seasonal Allergies: Yes Surgeries HX Surgeries: Yes (SINUS SURGERY, BACK FUSION 5-6-7) Respiratory Hx Respiratory Disorders: Yes Cardiovascular Hx Cardiovascular Disorders: No Neurological Hx Neurological Disorders: No Reproductive System Hx Reproductive Disorders: No Genitourinary Hx Genitourinary Disorders: No Gastrointestinal Hx Gastrointestinal Disorders: No Musculoskeletal Hx Musculoskeletal Disorders: Yes (CERVICAL STENOSIS) Musculoskeletal Disorders: Arthritis, Fractures Endocrine Hx Endocrine Disorders: No HEENT HX ENT Disorders: No (ALLERGIES) Cancer Hx Cancer: No Psychosocial Hx Psychiatric Problems: No Behavioral Health Disorders: Schizophrenia Integumentary HX Skin/Integumentary Disorder: No Blood Transfusions Hx Blood Disorders: No Adverse Reaction to a Blood Tr: No Reviewed Nursing Assessment Reviewed/Agree w Nursing PMH: Yes Family Medical History Significant Family History: No Pertinent Family Hx Family Hx: Arthritis 19 MOTHER G8 SISTER FH: emphysema 19 FATHER Hypertension 19 MOTHER Review of Systems Constitutional: No no symptoms reported, see HPINo chills, No diaphoresis, No dizziness, No fever, No weakness EENTM: nose congestion Respiratory: No cough, No hemoptysis, No orthopnea, No phlegm, No short of breath, No stridor, No wheezing Genitourinary: No discharge, No dysuria, No frequency, No hematuria, No hesitancy, No incontinence, No nocturia Physical Exam Physical Exam Vital Signs Vital Sign - Last 12Hours 09/28/16 14:13 Temp 99.7 Pulse 129 Resp 18 B/P 160/104 Pulse Ox 94 O2 Delivery Room Air Capillary Refill : Less Than 3 Seconds General Appearance: Anxious HEENT: PERRL/EOMI Pharynx Normal Neck: Limited Range of Motion Respiratory: Chest Non Tender Lungs Clear Normal Breath Sounds No Accessory Muscle Use No Respiratory Distress Cardiovascular: Regular Rate, Rhythm No Edema No Gallop No JVD No Murmur Normal Peripheral Pulses Gastrointestinal: Normal Bowel Sounds No Organomegaly No Pulsatile Mass Non Tender Soft Extremity: Normal Capillary Refill Normal Range of Motion Non Tender Other ( dependant rubor noted when standing feet warm) Neurologic/Psychiatric: Alert Oriented x3 Normal Mood/Affect Other (gait and balance) Skin: Normal Color Warm/Dry Results Results/Procedures Lab Laboratory Tests 09/28/16 14:40 09/29/16 04:55 Short Stay Diagnosis Discharge Diagnosis-Short Stay Admission Diagnosis 1. Acute psychosis NOS. 2. tOBACCOISM WITH DEPENDENT RUBOR PATIENT WAS ADVISED THAT HE NEEDED TO QUIT. dISCUSSED VARIOUS OPTIONS THAT HE COULD DISCUSS THIS IN FURTHER DETAIL WITH THIS PRIMARY CARE PROVIDER DR. POLANCO. 3.ct SCANNING OF THE NECK COMPATIBLE CERVICAL ARTHRITIS. 4. PLAIN FILMS THE RIGHT HIP COMPATIBLE WITH DEGENERATIVE JOINT DISEASE Final Discharge Diagnosis as per above Conclusion Plan patient was advised to follow-up with Dr. Amos and 1-2 weeks and advised consideration for mental health evaluation for further evaluation of his auditory hallucinations. Clinical Quality Measures DVT/VTE Risk/Contraindication: Risk Factor Score Per Nursin RFS Level Per Nursing on Admit: 3=High MARLENY COOPER MD Sep 29, 2016 15:56
== END 2016-09-29 12:15 | disposition home or self-care (01) | DRG 885 ==
LOC: EDUNIT# 13:26 → ER 13:30 → 4TH 20:45
PROVIDERS: ADMIT Internal Medicine
PROC: 009U3ZX Drainage of Spinal Canal, Percutaneous Approach, Diagnostic (ICD-10-PCS; principal; 2016-09-28)
DX: F23 Brief psychotic disorder (principal); J32.9 Chronic sinusitis, unspecified; R51 Headache; D72.829 Elevated white blood cell count, unspecified; J44.9 Chronic obstructive pulmonary disease, unspecified; F17.210 Nicotine dependence, cigarettes, uncomplicated; M16.11 Unilateral primary osteoarthritis, right hip; M47.812 Spondylosis without myelopathy or radiculopathy, cervical region
CPT/HCPCS: 36415; 70450; 70496; 71010; 72125; 72170; 73502; 80053; 80306; 80320; 80329; 81000; 82945; 83605; 84157; 84443; 85007; 85025; 85027; 85610; 85730; 87040; 87070; 87205; 88112; 89051; 93005; 96365; 96375

== ENCOUNTER → 2017-01-05 | Outpatient (CLI) | payer MEDICARE, OTHER ==
[~2017-01-05] MED LIST changes: +LEVO500T2 PO
--- NOTE | 2017-01-05 12:55 | Diagnostic Imaging Report ---
INDICATION: Recent fall. Hip pain. COMPARISON: None. FINDINGS: AP view of the pelvis and additional dedicated radiographic views of the bilateral hips were obtained. There is no fracture, dislocation, bone destruction, or radiopaque foreign body. Mild degenerative changes are present in the hip joints. The visualized pelvic osseous structures and the SI joints demonstrate no acute fracture or dislocation. There is no bone destruction or radiopaque foreign body. The surrounding soft tissue structures are unremarkable. There is calcified arterial sclerosis. IMPRESSION: 1. No acute fracture or dislocation in the left or right hip joint. 2. Mild degenerative changes. Dictated by: Dictated on workstation # [id number]
--- NOTE | 2017-01-05 13:16 | Diagnostic Imaging Report ---
CLINICAL INDICATION: Patient fell in October of 2016 and has had neck pain with left shoulder blade pain since. Patient denies arm pain. Patient had cervical fusion on 06/03/2010. Patient had cervical spacer implants on 06/01/2013. EXAM: MRI of the cervical spine performed without IV contrast. Sequences include sagittal T2, sagittal T1, sagittal T2 fat-sat, and axial T2. COMPARISON: MRI of the cervical spine dated 01/31/2016. FINDINGS: Limited visualization of the posterior fossa is stable with no significant abnormality. Cervical spinal cord has normal cord caliber with no abnormal signal changes seen. There are stable postop changes to the cervical spine with C4-C6 anterior cervical interbody fusion. There is solid intervertebral bony fusion seen at the C5-C6 and possibly C6-C7 levels. There is no significant intervertebral fusion at the C4-C5 level. There is stable abnormal kyphosis of the cervical spine posture in its mid and lower regions. There is susceptibility artifact from the hardware which obscures adjacent anatomical structures. C1-C2: There are small degenerative spurs involving the atlanto-odontoid interval anteriorly. There is stable mild ligamentum flavum buckling. There is no significant central canal narrowing. C2-C3: Again seen severe left facet arthropathy/hypertrophy and mild right facet arthropathy. There is stable mild to moderate left neuroforaminal narrowing. There is stable mild ligamentum flavum buckling. There is stable mild central canal narrowing. There is no significant right neuroforaminal narrowing. C3-C4: There is stable severe left facet arthropathy/hypertrophy and mild right facet arthropathy. There is stable severe left neuroforaminal narrowing and mild to moderate right neuroforaminal narrowing. There is no significant central canal narrowing. C4-C5: There is slight progression of small right paracentral disc spur. There is stable mild bilateral neuroforaminal narrowing. There is no significant central canal narrowing. C5-C6: Again seen intervertebral bony fusion with posterior vertebral body bony prominence which causes mild impression upon the thecal sac anteriorly which is stable. There is stable mild right neuroforaminal narrowing. There is no significant left neuroforaminal narrowing. C6-C7: There is slight progression of facet arthropathy. There is now severe right neuroforaminal narrowing which has progressed. There is no significant left neuroforaminal narrowing. Minimal impression upon the thecal sac anteriorly. C7-T1: There is stable moderate right facet arthropathy and mild left facet arthropathy with associated mild bilateral neuroforaminal narrowing. There is no significant central canal narrowing. IMPRESSION: 1: There is no evidence of acute cervical spine fracture or dislocation. 2: There are stable postop changes to the cervical spine with C4 through C6 anterior cervical intervertebral fusion. There is no significant intervertebral fusion at the C4-C5 level. 3: There is progression of degenerative disease at the C4-C5 and C6-C7 levels, as described above. Dictated by: Dictated on workstation # [id number]
== END ==
LOC: RAD 11:31
PROVIDERS: ATTEND Nurse Practitioner Family
DX: M43.02 Spondylolysis, cervical region (principal); M16.0 Bilateral primary osteoarthritis of hip; Z98.1 Arthrodesis status
CPT/HCPCS: 72141; 73523

== ENCOUNTER → 2017-01-07 | Outpatient (CLI) | payer MEDICARE, OTHER ==
--- NOTE | 2017-01-07 19:43 | Diagnostic Imaging Report ---
EXAMINATION: Three views of the lumbar spine. INDICATION: Fall. FINDINGS: There is left convexity scoliosis. The alignment of the posterior spinal line is satisfactory. The vertebral body heights are preserved. No significant disc height loss. There are multilevel anterior osteophytes. No posterior osteophytes seen. Sclerotic changes at the lower lumbar spine facet joints are seen. There is also sclerotic degenerative changes at the SI joints with suggestion of left SI joint fusion. IMPRESSION: Mild left convexity scoliosis of the lumbar spine with associated lower lumbar spine degenerative changes. Question of left SI joint fusion. Dictated by: Dictated on workstation # [id number]
--- NOTE | 2017-01-07 19:44 | Diagnostic Imaging Report ---
Three views of the thoracic spine. INDICATION: Fall. FINDINGS: The alignment at the posterior spinal line is satisfactory. Vertebral body heights are preserved. Multilevel small osteophytes are noted. No posterior osteophyte seen. Cervical spine fusion and evidence of corpectomy about the C6 level is seen. Paraspinal soft tissues appear grossly unremarkable. IMPRESSION: Minimal degenerative changes in the thoracic spine. Dictated by: Dictated on workstation # [id number]
== END ==
LOC: RAD 12:55
PROVIDERS: ATTEND Nurse Practitioner Family
DX: M41.9 Scoliosis, unspecified (principal); M47.816 Spondylosis without myelopathy or radiculopathy, lumbar region; M47.814 Spondylosis without myelopathy or radiculopathy, thoracic region; M54.15 Radiculopathy, thoracolumbar region
CPT/HCPCS: 72072; 72100